=== PATIENT | male | born 1955 | race Caucasian/White ===

== ENCOUNTER 2018-08-20 08:20 | Outpatient (CLI) ==
[2018-08-20] MEDS ORDERED: SALINE FLUSH (PORT ACCESS TRAY USE ONLY) IVF ONE (09:57)
[2018-08-20] MEDS ORDERED: HEPARIN 500 UNIT/5 ML (PORT ACCESS TRAY ONLY) IVF ONE (09:57)
[2018-08-20 10:20] VITALS: BP 141/96; TEMP 96.8
--- NOTE | 2018-08-20 19:08 | MRI ---
EXAM: MRI lumbar spine without IV contrast. DATE: 20 August 2018. HISTORY: Low back pain. TECHNIQUE: Sagittal and axial T1W and T2W sequences of the lumbar spine along with sagittal IR and c oronal T2W sequences were obtained using 1.2 Loretta magnet. No IV contrast. COMPARISON: CT L-spine 09 June 2015. LS spine series 08/17/2016. CT abdomen/pelvis 23 February 2017 .. FINDINGS: There are five [id number] lumbar vertebra. A 13 degrees leftward curvature lower tho racic and lumbar spine is present, with the apex of curvature at L3-4. A 2 mm retrolisthesis of L3 r elative to L4, and 2.6 mm retrolisthesis of L4 relative to L5 is noted. No other subluxation, the fr acture, or pars interarticularis defect is demonstrated. Lumbar vertebra are normal in height. Prom inent anterolateral osteophytes are observed at L4-5. Smaller osteophytes are seen at several other levels. T2W/T1W bright, 8 mm focus in the T11 vertebral body is likely a benign hemangioma. T2W/T1W dark, IR bright, 12 x 12 mm focus in the T12 vertebral body is of uncertain etiology. T2W/T1W inter mediate, IR bright signal is observed at the right L3-8 transverse process. Small area of IR hyperin tensity is evident within the left T11 pedicle/facet mild disc space narrowing is detected at L4-5. No acute sacral fracture or stress reaction is identified. SI joints are unremarkable. Narrowing of the thecal sac due to epidural fat is substantial at L5-S1 and the sacral canal. Conus medullaris t erminates at T12-L1. Visible spinal cord is normal. Multiple retroperitoneal lymph nodes ranging in size from 5-21 mm short axis are present at and immed iately below the level of the renal arteries. No aortic aneurysm is detected. Atherosclerotic plaqu es are seen in the aortic wall. Subtle undulating medial border contour in the right lobe liver is n oted. Visible portions of the spleen, adrenal glands, and left kidney reveal no definitive abnormali ty. T2W bright, T1W dark, 28 x 22 x 22 mm lesion in the medial cortex upper pole left kidney, which corresponds with a low-density (HU = four) focus on the May 2015 CT scan. Segmental analysis: T11-12: Normal. L1-2: Normal. L2-3: Minor posterior disc bulge causes mild central canal stenosis. Each foramen is patent. L3-4: Minor retrolisthesis of L3, pseudodisc bulge, and mild facet arthropathy cause mild right fora chary narrowing. No central canal stenosis. L4-5: Minor retrolisthesis of L4, pseudodisc bulge/small disc bulge, and minor facet disease cause m ild central canal stenosis, mild right foraminal stenosis, and marked narrowing at the opening to the left foramen. Left L4 nerve root appears to contact the disc bulge/osteophyte near the foramen. L5-S1: Posterior midline disc protrusion (3.8 mm AP x 2 cm transverse), mild right facet arthropathy and moderate left facet arthropathy cause minor left foraminal narrowing and minor central canal lis nosis. Thecal sac is further narrowed by abundant epidural fat. IMPRESSIONS: Unexpected findin. IR hyperintense lesions within the T10 body, left T11 facet, right L3 transv erse processes - - were not definitively seen on the January 2017 CT scan. Retroperitoneal lymphadenopa thy is new since July 2016. These findings are suspicious for malignancy. Otherwise, lymph node biopsy may be required to obtain a diagnosis. Bone scan or PET-CT scan recommended for further evalu ation. 2. Lumbar spine mild levoscoliosis, mild spondylosis, mild facet arthropathy, and multilevel DDD. 3. Multilevel lumbar foraminal stenoses, especially left L4-5. Left L4 nerve root is compromised ne ar the foramen, and may be a source for pain/radiculopathy. 4. Spinal lipomatosis at L5-S1 and the sacral canal. 5. Mild central canal stenosis at L4-5. 6. Moderate abdominal aortic atherosclerosis. 7. Right kidney benign-appearing cortical cyst. 8. Cannot exclude hepatic cirrhosis.
== END 2018-08-20 08:21 | disposition home or self-care (01) ==
LOC: OPMED 08:20
PROVIDERS: ATTEND Family Medicine
DX: M54.5 Low back pain (principal); G89.29 Other chronic pain; C20 Malignant neoplasm of rectum
CPT/HCPCS: 96523